=== PATIENT | male | born 1935 | race Native Hawaiian/Other Pacific Islander ===

== ENCOUNTER 2016-08-23 08:59 | Outpatient (CLI) | payer OTHER ==
[~2016-08-23 08:59] MED LIST: CELEXA10 MG PO; FENOFIBRATE43 MG OR; KRISTALOSE10 GM OR; LEVO0.0218 PO; MEGESTROL AC20 MG OR; METF500T PO; PROP10TA57 PO; SPIR25TA66 PO; [UNRECOGNIZED DRUG - CODE] OR; [UNRECOGNIZED DRUG - CODE] OR
== END 2016-08-23 19:51 | disposition home or self-care (01) ==
LOC: LABW 08:59 → US 09:00 → LABW 19:51
DX: R14.0 Abdominal distension (gaseous) (principal); K74.69 Other cirrhosis of liver
CPT/HCPCS: 36415; 82784

== ENCOUNTER 2016-10-14 08:54 | Outpatient (CLI) | payer OTHER | END 2016-10-14 21:00 | disposition home or self-care (01) | LOC: CT 08:54 → US 08:54 | DX: R18.8 Other ascites (principal); K74.60 Unspecified cirrhosis of liver ==

== ENCOUNTER 2016-10-29 16:09 | Outpatient (CLI) | payer OTHER ==
[2016-10-29 16:31] LABS: PLATELET COUNT 173 K/uL (142-355)
[2016-10-29 16:53] LABS: POTASSIUM 4.2 mmol/L (3.6-5.2); SODIUM 134 mmol/L (136-145)
== END 2016-10-29 19:11 | disposition home or self-care (01) ==
LOC: LABW 16:09
PROVIDERS: Internal Medicine Gastroenterology
DX: K74.69 Other cirrhosis of liver (principal)
CPT/HCPCS: 36415; 80048; 80076; 85027

== ENCOUNTER 2016-12-04 17:09 | Inpatient (IN) | payer OTHER ==
[~2016-12-04] VITALS: Ht 165.1 cm; Wt 58.1 kg
[2016-12-04 17:15] VITALS: BP 90/56; TEMP 97.6
[2016-12-04] MEDS ORDERED: GABA300C2 PO (17:38)
[2016-12-04] MEDS ORDERED: PROTONIX20 MG PO (17:39)
[2016-12-04] MEDS ORDERED: CITALOPRAM20 MG PO (17:39)
[2016-12-04] MEDS ORDERED: FURO40TA93 PO (17:40)
[2016-12-04 18:35] LABS: PLATELET COUNT 166 K/uL (142-355)
[2016-12-04 18:47] LABS: POTASSIUM 4.4 mmol/L (3.6-5.2)
[2016-12-04 18:48] LABS: PARTIAL THROMBOPLASTIN TIME 26.7 SECONDS (24.5-33.6)
[2016-12-04 18:58] VITALS: BP 116/54
[2016-12-05] VITALS (7 sets, daily range): BP systolic 107–138; BP diastolic 54–74; TEMP 97.3–98.7; Ht 165.1 cm; Wt 58.1 kg
[2016-12-05 10:58] LABS: PLATELET COUNT 150 K/uL (142-355)
[2016-12-06] VITALS: BP 120/59; TEMP 97.3
[2016-12-06 04:00] VITALS: BP 106/53; TEMP 98.3
[2016-12-06 08:00] VITALS: BP 117/66; TEMP 98.3
--- NOTE | 2016-12-06 10:05 | NUR ---
1000 DR GUNN HERE AT THIS TIME. NEW VERBAL ORDERS REC'D FOR THORACENTESIS PER MD. CONSENT OBTAINED AND EXPLAINED TO PT AND . NO ACUTE DISTRESS NOTED. WILL CON'T TO MONITOR
--- NOTE | 2016-12-06 11:38 | NUR ---
[address] PER DR GUNN AT BS PER AIR FILLER AND PROTOCOL. APPROX 300ML OF CLEAR YELLOW FLUID REMOVED. SPECIMENS COLLECTED AND SENT TO LAB PER MD ORDERS. PT TOLERATED WELL NO DISTRESS NOTED
[2016-12-06 12:00] VITALS: BP 122/55; TEMP 97.9
[2016-12-06 16:00] VITALS: BP 99/53; TEMP 97.9
[2016-12-06 20:00] VITALS: BP 106/53; TEMP 97.3
[2016-12-07] VITALS (12 sets, daily range): BP systolic 101–134; BP diastolic 48–88; TEMP 97.4–98.7
--- NOTE | 2016-12-07 10:45 | NUR ---
Pt. TO OR FOR CHEST TUBE PLACEMENT.
--- NOTE | 2016-12-07 11:45 | NUR ---
Pt. RETURN TO ROOM WITH CHEST TUBE INTACT.
--- NOTE | 2016-12-07 17:50 | NUR ---
CHEST TUBE DRAINAGE DRY SUCTION CHANGED. Pt. OUTPUT 2000 ML RED DRAINAGE.
[2016-12-08] VITALS: BP 92/50; TEMP 98
[2016-12-08 04:00] VITALS: BP 97/43; TEMP 97.8
[2016-12-08 08:00] VITALS: BP 100/43; TEMP 98.5
[2016-12-08 12:00] VITALS: BP 100/44; TEMP 98.7
[2016-12-08 16:01] VITALS: BP 103/58; TEMP 98.3
[2016-12-08 20:00] VITALS: BP 127/56; TEMP 98.3
[2016-12-09] VITALS: BP 98/47; TEMP 99
[2016-12-09 04:00] VITALS: BP 104/43; TEMP 98
[2016-12-09 08:00] VITALS: BP 89/33; TEMP 97.7
[2016-12-09 09:28] LABS: PLATELET COUNT 147 K/uL (142-355)
[2016-12-09 09:54] LABS: POTASSIUM 3.9 mmol/L (3.6-5.2); SODIUM 137 mmol/L (136-145)
[2016-12-09 12:00] VITALS: BP 141/61; TEMP 97.6
[2016-12-09 16:00] VITALS: BP 100/56; TEMP 97.9
[2016-12-09 20:00] VITALS: BP 105/38; TEMP 97.5
[2016-12-10] VITALS: BP 109/62; TEMP 98.1
[2016-12-10 04:00] VITALS: BP 94/47; TEMP 98.2
[2016-12-10 08:00] VITALS: BP 118/70; TEMP 97.8
[2016-12-10 12:25] VITALS: BP 128/56; TEMP 98
[2016-12-10 15:20] VITALS: BP 94/49; TEMP 97.6
--- NOTE | 2016-12-10 15:49 | NUR ---
0800 PT RESTING IN BED. AT BS. NO ACUTE DISTRESS NOTED. CHEST TUBE NOTED TO RT SIDE WITH DRESSING SECURE AND IN PLACE. 1900 MLS NOTED IN COLLECTION CANISTER AT THIS TIME. DRAINAGE NOTED TO BE PINK TINGED. 0900 DR GUNN INFORMED OF CHEST TUBE COLLECTION SET ALMOST BEING COMPLETY FULL AND NO MORE CHEST TUBES SETS AT THIST LIAN. HAIVNG TO OBTAIN MORE. NO NEW ORDERS REC'D AT THIS TIME. 1400 CHEST TUBE COLLECTION CANISTER AVAILABLE AT THIS TIME. CHEST TUBE SET CHANGED PER PROTOCOL AT THIS TIME. PT TOLERATED WELL. SMALL AMT OF IMMEDIATE RED TINGED DRAINAGE NOTED. 1530 DR GUNN HERE AT THIS TIME. NO NEW ORDERS REC'D AT THIS TIME
--- NOTE | 2016-12-10 17:25 | NUR ---
1725 PT HAS APPROX 45 CC OUT IN COLLECTION CONTAINER AT THIS TIME. TOTAL OUTPUT OF 550ML THIS SHIFT. PT REMAINS WITHOUT ANY DISTRESS NOTED. RESP EVEN AND NON LABORED. DRS REMAINS TO RT CHEST WALL DRY AND INTACT
[2016-12-10 20:00] VITALS: BP 136/63; TEMP 99.4
[2016-12-11] VITALS: BP 124/61; TEMP 97.7
[2016-12-11 04:00] VITALS: BP 102/52; TEMP 97.8
--- NOTE | 2016-12-11 05:27 | NUR ---
12/11/16 AT 0300CHEST TUBE DRAINAGE LEVEL IS NOW NOTED AT 1250ML. THIS MEANS PT HAS HAD 1200ML OF DRAINAGE DURING SHIFT SO FAR. WILL MONITOR CLOSELY, NO DISTRESS OR SOB NOTED.
--- NOTE | 2016-12-11 05:29 | NUR ---
12/11/16 AT 0120CHEST TUBE DRAINAGE LEVEL NOW NOTED AT 950ML CARY. WILL CONTINUE TO MONITOR, NO DISTRESS OR SOB NOTED. CHEST TUBE DRAINING TO GRAVITY AT BEDSIDE.
--- NOTE | 2016-12-11 05:30 | NUR ---
12/10/16 AT 1852CHEST TUBE DRAINAGE LEVEL IS NOTED AT THE 50ML CARY, WILL MONITOR.
[2016-12-11 08:00] VITALS: BP 106/48; TEMP 97.9
[2016-12-11 12:03] VITALS: BP 133/64; TEMP 97.9
[2016-12-11 16:13] VITALS: BP 103/48; TEMP 97.5
--- NOTE | 2016-12-11 18:34 | NUR ---
1830 CHEST TUBE [facility] CHANGED OUT AT THIS TIME. PT HAD 1000ML OUTPUT FROM CHEST TUBE THIS SHIFT CLEAR/BLOOD TINGED DRAINAGE. PT TOELRATED WELL NO DISRESS NOTED.
[2016-12-11 20:00] VITALS: BP 98/48; TEMP 97.9
[2016-12-12] VITALS (7 sets, daily range): BP systolic 101–144; BP diastolic 51–66; TEMP 97.5–98.9
--- NOTE | 2016-12-12 04:54 | NUR ---
12/12/16 AT 0015WRITER CALLED TO ROOM DUE TO PT TOLD PT TRANSCRIBING MACHINE MECHANIC THAT HIS FEET HURT. UPON TALKING WITH PT AND HIS , IT IS NOTED THAT THE PT'S HEELS ARE SORE, PT MOVEMENT AND POSITIONING IS LIMITED DUE TO CHEST TUBE TO R SIDE. EDUCATED PT AND ABOUT PRESSURE SORES, ACKNOWLEDGE UNDERSTANDING. ELEVATED PT'S HEELS ON PILLOW, PT ENCOURAGED TO CALL BACK IF HIS HEELS CONTINUE TO HURT SO THAT PAINTER APPRENTICE CAN CALL HIS DR ABOUT SOMETHING FOR PAIN. PT ACKNOWLEDGES UNDERSTANDING AND STATES HE THINKS THAT ELEVATING HIS FEET WILL HELP WITH HIS PAIN. IV LOCK INTACT TO L WRIST, O2 IN USE, CHEST TUBE INTACT TO R SIDE AND DRAINING TO GRAVITY AT BEDSIDE WITH NO PROBLEMS NOTED TO SITE, NO DISTRESS NOTED, WILL MONITOR, RAILS UP, CALL LIGHT IN REACH, BED IN LOW POSITION, REMAINS AT BEDSIDE.
--- NOTE | 2016-12-12 04:59 | NUR ---
12/11/16 AT 2019CHEST TUBE INTACT TO R SIDE WITH NO PROBLEMS NOTED TO SITE AND NO DISTRESS NOTED. CHEST TUBE DRAINAGE IS AT THE 30ML CARY. WILL MONITOR CLOSELY.
[2016-12-12 07:52] LABS: PLATELET COUNT 133 K/uL (142-355)
[2016-12-12 08:03] LABS: POTASSIUM 3.5 mmol/L (3.6-5.2); SODIUM 142 mmol/L (136-145)
--- NOTE | 2016-12-12 08:09 | NUR ---
12/12/16 AT 0550CHEST TUBE DRAINAGE LEVEL AT 1100 ML CARY.
--- NOTE | 2016-12-12 11:22 | NUR ---
[address] GUNN NO ANSWER. WILL ATTE,PT AGAIN LATER
--- NOTE | 2016-12-12 13:56 | NUR ---
1400 ASSISTED PT UP TO RECLINER. PT TOLERATED WELL WITH ASSISTANCE X 1. FAMILY AT BS. CHEST TUBE REMAINS INTACT TO RT CW. APPROX 1900ML OF DRAIANGE NOTED IN [facility]. WILL CON'T TO MONIOTR
--- NOTE | 2016-12-12 18:35 | NUR ---
1830 PT HAD 1615 MLS OF BLOODTINGED FLUID NOTED IN PLEURAL VAC THIS SHIFT. DRESSING REMAINS DRY AND INTACT TO RT CHEST WALL. PT RESTING IN BED WITH EYES CLOSED. PT TOLERATED RECLINER FOR APPROX 4 HRS THIS SHIFT.
--- NOTE | 2016-12-12 18:56 | NUR ---
[address] echevarria concerning i&o for this shift. unable to leave a message on cell phone will report off to oncoming to monitor closely
[2016-12-13 04:00] VITALS: BP 105/86; TEMP 98.7
--- NOTE | 2016-12-13 04:44 | NUR ---
12/13/16 AT 0045CHEST TUBE REMAINS INTACT TO R SIDE. PLEUR-EVAC DRAINAGE CONTAINER IS FULL. PLEUR-EVAC CONTAINER CHANGED AT THIS TIME WITH ASSISTANCE OF RUBEN ALLEN RN. PT TOLERATED WITH NO PROBLEMS, NOTED WATER SEAL CHAMBER FLUCTUATES WITH PT'S BREATHING, LIGHT SEROSANGINOUS DRAINAGE NOTED IN TUBING.
--- NOTE | 2016-12-13 04:59 | NUR ---
12/12/16 AT 2135PLEUR-EVAC CHEST DRAINAGE CONTAINER LEVEL IS AT 2250 ML CARY. NO PROBLEMS NOTED.
[2016-12-13 06:20] LABS: POTASSIUM 3.6 mmol/L (3.6-5.2); SODIUM 138 mmol/L (136-145)
--- NOTE | 2016-12-13 07:31 | NUR ---
12/13/16 AT 0630CHEST TUBE REMAINS INTACT TO R SIDE WITH DRESSING DRY AND INTACT, NOTE PLEUR-EVAC DRAINAGE CONTAINER LEVEL AT 130 ML CARY. WILL MONITOR.
[2016-12-13 07:57] VITALS: BP 102/58; BP 87/40; TEMP 97.9
[2016-12-13 12:00] VITALS: BP 124/59; TEMP 98
[2016-12-13 16:00] VITALS: BP 105/63; TEMP 97.7
[2016-12-13 20:00] VITALS: BP 114/57; TEMP 98
[2016-12-14] VITALS: BP 107/60; TEMP 98.2
[2016-12-14 04:00] VITALS: BP 100/59; TEMP 97.8
[2016-12-14 08:00] VITALS: BP 102/59; TEMP 98.1
[2016-12-14 08:50] LABS: PLATELET COUNT 160 K/uL (142-355)
[2016-12-14 09:08] LABS: SODIUM 137 mmol/L (136-145)
[2016-12-14 12:00] VITALS: BP 123/69; TEMP 97.8
[2016-12-14 16:00] VITALS: BP 118/60; TEMP 98
--- NOTE | 2016-12-14 16:05 | NUR ---
ASSISTED PT BACK TO BED
--- NOTE | 2016-12-14 17:40 | NUR ---
CHEST TUBE REMOVED PER DR GUNN
--- NOTE | 2016-12-14 18:30 | NUR ---
IV CATH REMOVED. DISHCARGE INSTRUCTIONS GIVEN TO FAMILY, PT TAKEN OUT VIA W/C
== END 2016-12-14 18:41 | disposition home or self-care (01) | DRG 187 ==
LOC: ED 17:09 → EDP 17:09 → MED/SURG 18:25
PROVIDERS: Student in an Organized Health Care Education/Training Program; ADMIT Family Medicine
PROC: 0W993ZZ Drainage of Right Pleural Cavity, Percutaneous Approach (ICD-10-PCS; principal; 2016-12-06)
PROC: 0W9930Z Drainage of Right Pleural Cavity with Drainage Device, Percutaneous Approach (ICD-10-PCS; 2016-12-07)
DX: J90 Pleural effusion, not elsewhere classified (principal); J94.8 Other specified pleural conditions; E46 Unspecified protein-calorie malnutrition; K75.81 Nonalcoholic steatohepatitis (NASH); K74.69 Other cirrhosis of liver; R53.1 Weakness; E88.09 Other disorders of plasma-protein metabolism, not elsewhere classified; R31.9 Hematuria, unspecified
CPT/HCPCS: 36415; 80048; 80053; 81000; 82042; 82550; 82945; 82948; 83615; 83735; 83986; 84134; 84155; 84439; 84443; 84484; 85027; 85610; 85730; 87040; 87070; 87205; 89050; 93005; 94640; 94664; 94668; 94760; 96360; 96365; 96366; 96367; 96372; 99284; J1200; J1644; J1956; J2270; J2704; J3490; P9047

== ENCOUNTER 2016-12-29 13:47 | Outpatient (CLI) | payer OTHER ==
[~2016-12-29 13:47] MED LIST changes: +CITALOPRAM20 MG PO; +FURO40TA93 PO; +GABA300C2 PO; +PROTONIX20 MG PO
== END 2016-12-29 13:53 | disposition short-term general hospital (02) ==
LOC: AMB 13:47
DX: R06.09 Other forms of dyspnea (principal); R53.1 Weakness
CPT/HCPCS: A0425; A0427

== ENCOUNTER 2016-12-29 13:54 | Inpatient (IN) | payer OTHER ==
[2016-12-29] VITALS (11 sets, daily range): BP systolic 80–128; BP diastolic 47–83; TEMP 97.6–98; Ht 177.8 cm; Wt 53.5 kg
[~2016-12-29] VITALS: Ht 177.8 cm; Wt 53.5 kg
[2016-12-29 15:34] LABS: PLATELET COUNT 249 K/uL (142-355)
[2016-12-29 16:00] LABS: POTASSIUM 4.8 mmol/L (3.6-5.2)
--- NOTE | 2016-12-29 18:50 | NUR ---
RECEIVED PT FROM ER VIA STRETCHER. TRANSFERRED PT TO ICU BED. PT SEEMS TO BE LETHARGIC. PT RESPONDS TO NAME. PLACED ICU MONITORS ON PT. V/S STABLE. PT HAS O2 @ 2L/NC. PT HAS MULTI BRUISES AND SCAB/DRY AREA TO R CHEST. PT HAS A 20G TO L AC WITH NS AT 50ML/HR.
--- NOTE | 2016-12-29 18:52 | NUR ---
PT INCONT OF URINE. PT CLEANED AND DIAPER PLACED. AT BEDSIDE.
[2016-12-30] VITALS (23 sets, daily range): BP systolic 97–158; BP diastolic 55–98; TEMP 97.6–98.6
--- NOTE | 2016-12-30 03:32 | NUR ---
12/30/16 0332 PT AROUSED WHEN SPEAKING TO TOLD ROSY THAT I AM TRYING TO CATCH SOME URINE IN URINAL HE SAID HE MIGHT CAN PEE IN A LITTLE WHILE.CC
[2016-12-30 05:44] LABS: PLATELET COUNT 225 K/uL (142-355)
[2016-12-30 06:47] LABS: POTASSIUM 4.6 mmol/L (3.6-5.2)
--- NOTE | 2016-12-30 07:37 | NUR ---
PT VOIDED IN URINAL 150ML DARK CONCENTRATED URINE. PT MORE AWAKE. ORIENTED PT TO ROOM SURROUNDINGS.
--- NOTE | 2016-12-30 09:17 | NUR ---
PT RESTING QUIETLY WITH EYES CLOSED. WILL CONTINUE TO MONITOR.
--- NOTE | 2016-12-30 10:06 | NUR ---
FAMILY AT BEDSIDE.
--- NOTE | 2016-12-30 11:10 | NUR ---
DR. MONTANO HERE TO SEE PT.
--- NOTE | 2016-12-30 12:18 | NUR ---
DR. GUNN HERE TO SEE PT.
--- NOTE | 2016-12-30 14:02 | NUR ---
PT RESTING QUIETLY WITH EYES CLOSED. WILL CONTINUE TO MONITOR.
--- NOTE | 2016-12-30 14:20 | NUR ---
KELSEY TAVAREZ HERE TO EVALUATE PT.
--- NOTE | 2016-12-30 16:09 | NUR ---
FAMILY AT BEDSIDE.
--- NOTE | 2016-12-30 18:00 | NUR ---
SCDS APPLIED TO BLE.
--- NOTE | 2016-12-30 18:21 | NUR ---
PT RESTING QUIETLY WITH EYES CLOSED. WILL CONTINUE TO MONITOR.
--- NOTE | 2016-12-30 19:30 | NUR ---
AT PATIENT BEDSIDE FOR ASSESSMENT. PATIENT ASLEEP AND AWAKE TO VOICE. NO ACUTE DISTRESS NOTED AND NO COMPLAINTS. JANITOR AND CLEANER, PULSE OX, NIBP, O2 @ 2 LPM NC, IV 22 GA RIGHT UPPER ARM WITH NS @ 125 ML/HR. PATIENT TO BEDSIDE AND URINAL NEEDED. BED IN LOW POSITION AND TWO SIDERAILS UP.
--- NOTE | 2016-12-30 20:02 | NUR ---
FAILY AT BEDSIDE
--- NOTE | 2016-12-30 20:15 | NUR ---
FAILY AT BEDSIDE
--- NOTE | 2016-12-30 21:25 | NUR ---
FAMILY AT BEDSIDE.
[2016-12-31] VITALS (13 sets, daily range): BP systolic 90–149; BP diastolic 57–88; TEMP 97.4–97.9
--- NOTE | 2016-12-31 01:00 | NUR ---
PATIENT SLEEPING AND AWAKE TO VOICE. NO CHANGE OR ACUTE DISTRESS.
--- NOTE | 2016-12-31 05:00 | NUR ---
PATIENT AWAKE AND WATCHING TV. NO CHANGE OR ACUTE DISTRESS. PATIENT ASKING WHEN HE CAN GO HOME.
--- NOTE | 2016-12-31 06:00 | NUR ---
AT PATIENT BEDSIDE FOR LAB DRAW. PATIENT AWAKE AND ALERT. NO COMPLAINTS OR ACUTE DISTRESS.
[2016-12-31 08:17] LABS: PLATELET COUNT 151 K/uL (142-355)
--- NOTE | 2016-12-31 10:16 | NUR ---
TRESA /S.TChrissy AT BS, ORAL CARE DONE. PT FEED PER S.T.
--- NOTE | 2016-12-31 11:30 | NUR ---
PT ASSISTED TO TRANSFORMATION SPECIALIST ORDER TO VOID, PT ABLE TO VOID, TOLERATED WELL.. PT WAS THEN INSTRUCTED TO TAKE SEVERAL STEPS TOWARDS THE HEAD OF THE BED, PT TOLERATED WELL. PT WAS THEN ASSISTED BACK INTO BED
--- NOTE | 2016-12-31 12:40 | NUR ---
THORACENTISIS PERFORMED PER DR GUNN, 100CC FLUID REMOVED. PT UNABLE TO TOLERATE FOR A LONG PERIOD OF TIME, PT ASK DR GUNN TO STOP PROCEDURE.
--- NOTE | 2016-12-31 14:15 | NUR ---
SKIN TEAR TO L AC CLEANED AND DRESSED. PT TOLERATED WELL
--- NOTE | 2016-12-31 14:22 | NUR ---
CHEST XRAY REPORTED TO DR GUNN. NUVIA INFORMED THAT FAMILY WAS READY TO TAKE PT HOME
--- NOTE | 2016-12-31 15:30 | NUR ---
DISCHARGE INSTRUCTIONS GIVEN. PT TAKEN OUT VIA W/C, FAMILY AT SIDE. IV REMOVED PRIOR TO LEAVING
== END 2016-12-31 15:35 | disposition home or self-care (01) | DRG 187 ==
LOC: ED 13:54 → ICU 16:30 → MED/SURG 16:30 → ICU 12-31 15:35
PROVIDERS: Emergency Medicine
PROC: 0W993ZZ Drainage of Right Pleural Cavity, Percutaneous Approach (ICD-10-PCS; principal; 2016-12-31)
DX: J90 Pleural effusion, not elsewhere classified (principal); E72.20 Disorder of urea cycle metabolism, unspecified; N18.4 Chronic kidney disease, stage 4 (severe); E83.41 Hypermagnesemia; D64.89 Other specified anemias; K74.69 Other cirrhosis of liver; E03.8 Other specified hypothyroidism; E86.0 Dehydration; E11.9 Type 2 diabetes mellitus without complications; R13.12 Dysphagia, oropharyngeal phase; I12.9 Hypertensive chronic kidney disease with stage 1 through stage 4 chronic kidney disease, or unspecified chronic kidney disease; J44.9 Chronic obstructive pulmonary disease, unspecified
CPT/HCPCS: 36415; 80053; 81000; 82140; 82962; 83735; 84443; 85027; 96360; 99284